=== PATIENT | male | born 1945 | race Caucasian/White ===

== ENCOUNTER 2017-02-06 15:36 | Inpatient (IN) | payer MEDICARE, SELFPAY ==
--- NOTE | ~2017-02-06 | DS ---
Discharge Summary [facility] [address] [place]. [address] NAME: DAISY ADDISON : 43 STATUS : DIS IN PAT#: [id number] AGE: 71 ADM/REG DATE : 02/06/17 MR#: [id number] REPORT SERV DATE: 02/18/17 DICTATED BY: JERE DIAZ DATE: 02/17/17 REPORT STATUS : Draft TRANSCRIBED BY: SHEBA DATE: 02/17/17 Data Collection from hospitalization DISCHARGE DIAGNOSES: 1. Acute coronary syndrome, status post percutaneous coronary intervention. 2. Coronary artery disease. 3. Hypertension. 4. Hyperlipidemia. 5. Former smoker. CONSULTATIONS: None. PROCEDURES PERFORMED: Cardiac catheterization and percutaneous coronary intervention on 02/08/2017. MEDICATIONS: Norvasc 10 mg daily, aspirin 81 mg daily, Lipitor 40 mg at bedtime, Dexilant 60 mg before breakfast, hydrochlorothiazide 25 mg daily, Claritin 10 mg daily, Klor-Con 10 mEq daily, Mysoline 100 mg twice a day, Altace 2.5 mg daily, Flomax 0.4 mg at bedtime, and Brilinta 90 mg twice a day. CONDITION AT DISCHARGE: Stable. DISPOSITION: The patient was discharged home on a low-sodium, low-cholesterol, cardiac diet with activities as instructed. He would follow up with me on 03/02/2017. HOSPITAL COURSE: This is a 71-year-old man who has a history significant for coronary artery disease. He had undergone previous stenting. He presented to the emergency room after the acute onset of substernal chest pain radiating to the left arm with associated nausea, diaphoresis, and shortness of breath. The patient reports that he was driving at the time of this episode. He said that earlier in the day he had been performing some outdoor work, but said that the exertion was not unlike that which he usually performs without difficulty. He was admitted to the hospital at this time for further evaluation and treatment. Upon admission, EKG showed incomplete right bundle-branch block with borderline left ventricular hypertrophy by voltage criteria and aVL. Troponin x2 was negative. He was felt to have acute coronary syndrome. It was felt that he would need to undergo left heart catheterization and possible percutaneous coronary intervention. The following day, he was in no distress. His lungs were clear. He was taken to the cardiac salvage laborer where he underwent the above-mentioned procedure. He tolerated this well, and there were no complications. Discharge planning was performed. He had successful percutaneous transluminal coronary angioplasty and placement of drug-eluting stent in the mid left anterior descending artery. On 02/09/2017, he had no chest pain or shortness of breath. Blood pressure had increased slightly. His lungs were clear. He had no edema. Ramipril was added to his regimen. Discharge instructions were given. The importance of DAPT was reinforced. Due to his improved and stable condition, he was discharged home with the above stated instructions. Information collected by: Brooklynn Hill Discharge Summary [facility] [address] [place]. [address] NAME: DAISY ADDISON : 43 STATUS : DIS IN [facility]#: [id number] AGE: 71 ADM/REG DATE : 02/06/17 MR#: [id number] REPORT SERV DATE: 02/18/17 DICTATED BY: JERE DIAZ DATE: 02/17/17 REPORT STATUS : Draft TRANSCRIBED BY: SHEBA DATE: 02/17/17 I submit the above information as my discharge summary. ANAM/SHEBA Jere Diaz M.D., Elyssa / [id number] CC: Jere Diaz M.D., Elyssa Jerry M.D.
--- NOTE | ~2017-02-06 | OP ---
Record Of Operation [facility] [address] [place]. [address] NAME: DAISY ADDISON : 43 STATUS : ADM Jose PAT#: [id number] AGE: 71 ADM/REG DATE : 02/06/17 MR#: [id number] REPORT SERV DATE: 02/09/17 DICTATED BY: JERE DIAZ DATE: 02/08/17 REPORT STATUS : Draft TRANSCRIBED BY: SHEBA DATE: 02/08/17 DATE OF PROCEDURE: 02/08/2017 INDICATION FOR THIS PROCEDURE: Acute coronary syndrome. DESCRIPTION OF PROCEDURE: The patient was prepped and draped in the usual sterile fashion. Adequate anesthesia was obtained over the right femoral vessels using lidocaine infiltration. Using the Seldinger technique, a 6-Chilean sheath was placed in the right femoral artery. A 6 FL5 coronary catheter was advanced in the left coronary ostium. Left coronary artery injections were performed in multiple views. Left coronary catheter was then exchanged for 6 FR4 coronary catheter, which was advanced to the right coronary ostium. Right coronary injections were then performed in the MOIZ and JARAMILLO views. The right coronary catheter was then exchanged for 6-Chilean pigtail catheter, which was advanced into the left ventricular cavity. Pressures were measured across the aortic valve and left ventricular angiogram was obtained in the JARAMILLO projection. The pigtail catheter was removed over a guidewire and sheath left in place. There were no apparent complications. RESULTS: 1. Pressures: The left ventricular end-diastolic pressure was 16 mmHg and no gradient was present across the aortic valve. 2. Left ventricular angiogram: The left ventricle contracted normally with an estimated ejection fraction of 65%. 3. Coronary arteriograms: The left main coronary artery is normal. Left anterior descending coronary artery has an 80% segmental stenosis just distal to the site of previous stent implantation in the mid vessel. Left circumflex coronary artery has a 60% to 70% distal lesion in the obtuse marginal branch (small vessel disease). The right coronary artery is a dominant vessel and is also normal. IMPRESSION: 1. High-grade stenosis of mid left anterior descending artery. 2. Small vessel disease in the distribution of the left circumflex coronary artery. 3. Normal left ventricular function. PLAN: Proceed with stenting of mid LAD. DEANNA/SHEBA Jere Diaz M.D., Elyssa / [id number] CC: Jere Diaz M.D., Elyssa Record Of Operation [address] [place] [address] NAME: SENIOR DATABASE PROGRAMMERVEE GASTONYuridia YU : 43 STATUS : ADM Jose PAT#: [id number] AGE: 71 ADM/REG DATE : 02/06/17 MR#: [id number] REPORT SERV DATE: 02/09/17 DICTATED BY: JERE DIAZ DATE: 02/08/17 REPORT STATUS : Draft TRANSCRIBED BY: SHEBA DATE: 02/08/17 Navdeep Jerry M.D.
--- NOTE | ~2017-02-06 | HP ---
History And Physical [facility] [id number] [place]. [address] NAME: DAISY GROVE : 43 STATUS : ADM Jose PAT#: [id number] AGE: 71 ADM/REG DATE : 02/06/17 MR#: [id number] REPORT SERV DATE: 02/07/17 DICTATED BY: JERE HIGGINS DATE: 02/07/17 REPORT STATUS : Draft TRANSCRIBED BY: MODL DATE: 02/07/17 DATE OF ADMISSION: 02/06/2017 HISTORY OF PRESENT ILLNESS: Mr. Daisy rGove is a 71-year-old gentleman with past medical history significant for coronary artery disease, status post previous stent by Dr. Diaz. He presented to the emergency room after the acute onset of substernal chest pain radiating to the left arm with associated nausea, diaphoresis, and shortness of breath. The patient reports that he was driving at the time of the episode. He reports that earlier in the day he had been performing some outdoor work but states that the exertion was not unlike that which he usually performs without difficulty. REVIEW OF SYSTEMS: The patient denies any orthopnea, paroxysmal nocturnal dyspnea, syncope or presyncope. He denies any gastrointestinal, genitourinary, neurologic or respiratory complaints except as per HPI. PAST MEDICAL HISTORY: As noted above. Significant for coronary artery disease. He has been previously stented by Dr. Diaz. He reports at that time he was told that he had another lesion which was not stented secondary to collaterals. The patient is status post bilateral knee surgeries. He is status post previous left hip surgery. He has had previous cholecystectomy and spine fusion. 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 MEDICATIONS: See list. ALLERGIES: THE PATIENT REPORTS ALLERGY TO MORPHINE. SOCIAL HISTORY: The patient has not smoked in over 40 years. FAMILY HISTORY: Positive for coronary artery disease. PHYSICAL EXAMINATION: VITAL SIGNS: Blood pressure 132/76, pulse 50, respiratory rate 18. The patient is afebrile. GENERAL: This is a well-developed, well-nourished, 71-year-old white male, alert and oriented x3 in no acute distress. NECK: No jugular venous distention, hepatojugular reflux, carotid bruits. CARDIOVASCULAR: Decreased rate with regular rhythm. No murmur, gallop, click, or rub. LUNGS: Clear to auscultation without wheezes, rales, or rhonchi. ABDOMEN: Soft, nontender, nondistended. Positive bowel sounds. EXTREMITIES: Trace lower extremity edema. DATA: EKG shows an incomplete right bundle branch block with borderline LVH by voltage criteria and aVL. Troponin x2 is negative. ASSESSMENT: History And Physical [address] [place]. [address] NAME: DAISY GROVE : 43 STATUS : ADM Jose PAT#: [id number] AGE: 71 ADM/REG DATE : 02/06/17 MR#: [id number] REPORT SERV DATE: 02/07/17 DICTATED BY: JERE HIGGINS DATE: 02/07/17 REPORT STATUS : Draft TRANSCRIBED BY: SHEBA DATE: 02/07/17 1. Acute coronary syndrome. 2. Coronary artery disease. 3. Hypertension. 4. Hyperlipidemia. 5. History of Alonzo's esophagitis. PLAN: 1. See orders. 2. Proceed with left heart catheterization and possible PCI. We will defer this decision to Dr. Diaz. /SHEBA Jere Higgins M.D., [facility] / [id number] CC: Jere Diaz M.D., F.A.C.C.
--- NOTE | ~2017-02-06 | OP ---
Record Of Operation [facility] [address] [place]. [address] NAME: DAISY ADDISON : 43 STATUS : ADM Jose PAT#: [id number] AGE: 71 ADM/REG DATE : 02/06/17 MR#: [id number] REPORT SERV DATE: 02/09/17 DICTATED BY: JERE DIAZ DATE: 02/08/17 REPORT STATUS : Draft TRANSCRIBED BY: MODL DATE: 02/08/17 DATE OF PROCEDURE: 02/08/2017 [facility] REPORT INDICATION FOR THIS PROCEDURE: Acute coronary syndrome. PROCEDURE IN DETAIL: The patient had already been prepped and draped and a 6-Marshallese sheath was in place in the right femoral artery from preceding cardiac catheterization. Moderate IV sedation was administered. A 6 FL5 coronary guiding catheter was advanced to the left coronary ostium. Left coronary artery injections confirmed the presence of an 80% segmental stenosis of the mid LAD. A 0.014 Luge guidewire was passed into the distal vessel. The vessel was dilated with a 3.0/20 Emerge balloon at up to 15 atmospheres pressure for 15 seconds in duration. A 2.75/28 Synergy stent was then deployed across the lesion at up to 15 atmospheres pressure for 15 seconds in duration. Following removal of balloon and guidewire, final left coronary artery injection showed 0% residual stenosis at the site of stent implantation with LAMAR grade 3 distal flow. The guiding catheter was removed and the sheath left in place. There were no apparent complications. TOTAL CONTRAST: 140 mL. RADIATION EXPOSURE: 1200 mGy. ESTIMATED BLOOD LOSS: No significant blood loss occurred. IMPRESSION: Successful percutaneous transluminal coronary angioplasty and placement of drug- eluting stent in mid left anterior descending artery. DEANNA/SHEBA Jere Diaz M.D., Elyssa / [id number] CC: Jere Diaz M.D., Elyssa Jerry M.D.
[~2017-02-06 15:36] MED LIST: ALTA2.5 PO; ASA5GR PO; ASAB PO; B12100T PO; BYSTOLIC10 MG PO; COREG3 PO; CYANO1000T PO; DOX10 PO; EFFIENT10 PO; FERROUS SULF325 M1 PO; FLOMAX4 PO; GERIATRIC HP PO; HYDROCHLOROT25 MG PO; KAPIDEX60 MG PO; KDUR10 PO; KLONO1 PO; LEXAPRO10 PO; METHOC500B PO; METHOC750B PO; MOBIC15 MG PO; NORV10 PO; PRILO PO; PRIM50B PO; TRIBENZOR PO; ZANTAC150 MG PO
[2017-02-06 16:20] LABS: BASOPHILS 0.2 %; BASOPHILS ABSOLUTE 0.02 10/3/uL (0.0-0.16); EOSINOPHILS 1.1 %; EOSINOPHILS ABSOLUTE 0.12 10/3/uL (0.0-0.53); ER CBC TAT 0 Hrs 03 Mins; HEMATOCRIT 38.4 % (40.0-51.0); HEMOGLOBIN 13.4 g/dL (13.6-17.8); IMMATURE GRANULOCYTES 0.3 %; IMMATURE GRANULOCYTES ABSOLUTE 0.03 10/3/uL (0.0-0.11); LYMPHOCYTES 14.9 %; LYMPHOCYTES ABSOLUTE 1.56 10/3/uL (0.67-4.30); MEAN CORPUS HGB CONC 34.9 g/dL (32.0-36.0); MEAN CORPUSCULAR HEMOGLOB 32.4 pg (26.0-34.0); MEAN PLATELET VOLUME 10.6 fL (9.2-13.0); MONOCYTES 7.3 %; MONOCYTES ABSOLUTE 0.76 10/3/uL (0.21-1.20); NEUTROPHILS 76.2 %; NEUTROPHILS ABSOLUTE 7.95 10/3/uL (2.02-8.40); RBC DISTRIBUTION WIDTH 13.6 % (12.0-16.0); RED CELL COUNT 4.13 10/6/uL (4.7-6.1); WHITE BLOOD CELLS 10.4 10/3/uL (4.5-10.5)
[2017-02-06 16:21] LABS: MANUAL DIFF NO %; PLATELET COUNT 182 10/3/uL (150-400)
[2017-02-06 16:30] LABS: INTERNATIONAL NORMAL RATI 1.1 UNITS (-); PARTIAL THROMBO TIME 28.5 SEC (22.5-37.2); PROTIME (NOT ORD) 14.2 SEC (12.0-14.5)
[2017-02-06] MEDS ORDERED: PRIM50B PO (16:31)
[2017-02-06] MEDS ORDERED: FLOMAX4 PO (16:31)
[2017-02-06] MEDS ORDERED: NORV10 PO (16:32)
[2017-02-06] MEDS ORDERED: KAPIDEX60 MG PO (16:32)
[2017-02-06] MEDS ORDERED: HYDROCHLOROT25 MG PO (16:32)
[2017-02-06] MEDS ORDERED: KLOR-CON M1010 MEQ PO (16:33)
[2017-02-06] MEDS ORDERED: CLARIT10 PO (16:33)
[2017-02-06] MEDS ORDERED: ADVIL PO (16:33)
[2017-02-06 16:35] LABS: CALCIUM, SERUM 8.1 MG/DL (8.5-10.4); CHEST PAIN PROFILE TAT 0 Hrs 18 Mins; CHLORIDE, SERUM 102 MMOL/L (96-112); CO2 (CARBON DIOXIDE) 30 MMOL/L (24-34); SODIUM, SERUM 142 MMOL/L (135-148); TROPONIN I <0.02 NG/ML (<0.05)
[2017-02-06] MEDS ORDERED: AMOXICILLIN PO (16:35)
[2017-02-06 16:36] LABS: BUN (BLOOD UREA NITROGEN) 13 MG/DL (6-23); CREATININE 1.49 MG/DL (0.70-1.30); GFR AFRICAN AMERICAN 54 ML/MIN (>=60); GFR NON AFRICAN AMERICAN 46 ML/MIN (>=60); GLUCOSE, SERUM 136 MG/DL (60-99); POTASSIUM, SERUM 2.8 MMOL/L (3.5-5.3)
[2017-02-06 22:43] LABS: POTASSIUM, SERUM 3.5 MMOL/L (3.5-5.3); TROPONIN I <0.02 NG/ML (<0.05)
[2017-02-07 00:25] LABS: ASCORBIC ACID (UR NOT ORDER) NEG (NEG); BILIRUBIN, URINE NEGATIVE (NEG); KETONE, URINE NEGATIVE (NEG); LEUKOCYTE ESTERASE(NOT OR NEG (NEG); WBC (NOT ORDERED) (RFLEX) 1 (0-5)
[2017-02-07 04:37] LABS: BASOPHILS 0.3 %; BASOPHILS ABSOLUTE 0.02 10/3/uL (0.0-0.16); EOSINOPHILS ABSOLUTE 0.08 10/3/uL (0.0-0.53); HEMATOCRIT 36.7 % (40.0-51.0); HEMOGLOBIN 12.6 g/dL (13.6-17.8); IMMATURE GRANULOCYTES 0.1 %; IMMATURE GRANULOCYTES ABSOLUTE 0.01 10/3/uL (0.0-0.11); LYMPHOCYTES ABSOLUTE 1.79 10/3/uL (0.67-4.30); MEAN CORPUS HGB CONC 34.3 g/dL (32.0-36.0); MEAN CORPUSCULAR VOLUME 93.1 fL (80-100); MEAN PLATELET VOLUME 11.4 fL (9.2-13.0); MONOCYTES 7.1 %; MONOCYTES ABSOLUTE 0.55 10/3/uL (0.21-1.20); NEUTROPHILS 68.5 %; NEUTROPHILS ABSOLUTE 5.32 10/3/uL (2.02-8.40); PLATELET COUNT 141 10/3/uL (150-400); RBC DISTRIBUTION WIDTH 13.8 % (12.0-16.0); RED CELL COUNT 3.94 10/6/uL (4.7-6.1); WHITE BLOOD CELLS 7.8 10/3/uL (4.5-10.5)
[2017-02-07 04:38] LABS: MANUAL DIFF NO %
[2017-02-07 04:54] LABS: CHOL/HDL RATIO(NOT ORDER) 3.8 (0-5); CHOLESTEROL 122 MG/DL (< 200); HDL CHOLESTEROL 32 MG/DL (> 39); LDL CHOLESTEROL 68 MG/DL (< 130); NON-HDL CHOLESTEROL 90 MG/DL (< 160); SGPT(ALT) 25 U/L (5-65); TRIGLYCERIDE 110 MG/DL (< 150)
[2017-02-07 07:11] LABS: BUN (BLOOD UREA NITROGEN) 12 MG/DL (6-23); CALCIUM, SERUM 7.8 MG/DL (8.5-10.4); CHLORIDE, SERUM 109 MMOL/L (96-112); CO2 (CARBON DIOXIDE) 26 MMOL/L (24-34); CREATININE 1.05 MG/DL (0.70-1.30); GFR AFRICAN AMERICAN 82 ML/MIN (>=60); GFR NON AFRICAN AMERICAN 71 ML/MIN (>=60); POTASSIUM, SERUM 3.8 MMOL/L (3.5-5.3); SODIUM, SERUM 145 MMOL/L (135-148)
[2017-02-07 07:12] LABS: GLUCOSE, SERUM 100 MG/DL (60-99)
[2017-02-08 05:23] LABS: INTERNATIONAL NORMAL RATI 1.1 UNITS (-); PROTIME (NOT ORD) 14.1 SEC (12.0-14.5)
[2017-02-08 05:24] LABS: PARTIAL THROMBO TIME 59.5 SEC (22.5-37.2)
[2017-02-08 05:36] LABS: BUN (BLOOD UREA NITROGEN) 12 MG/DL (6-23); CALCIUM, SERUM 8.6 MG/DL (8.5-10.4); CHLORIDE, SERUM 104 MMOL/L (96-112); CHOL/HDL RATIO(NOT ORDER) 4.4 (0-5); CHOLESTEROL 127 MG/DL (< 200); CO2 (CARBON DIOXIDE) 30 MMOL/L (24-34); CREATININE 1.17 MG/DL (0.70-1.30); GFR AFRICAN AMERICAN 72 ML/MIN (>=60); GFR NON AFRICAN AMERICAN 62 ML/MIN (>=60); GLUCOSE, SERUM 93 MG/DL (60-99); HDL CHOLESTEROL 29 MG/DL (> 39); LDL CHOLESTEROL 64 MG/DL (< 130); NON-HDL CHOLESTEROL 98 MG/DL (< 160); POTASSIUM, SERUM 3.4 MMOL/L (3.5-5.3); SODIUM, SERUM 142 MMOL/L (135-148)
[2017-02-08 05:41] LABS: TRIGLYCERIDE 173 MG/DL (< 150)
[2017-02-08 06:02] LABS: BASOPHILS 0.3 %; BASOPHILS ABSOLUTE 0.02 10/3/uL (0.0-0.16); EOSINOPHILS 1.8 %; EOSINOPHILS ABSOLUTE 0.13 10/3/uL (0.0-0.53); HEMATOCRIT 36.8 % (40.0-51.0); HEMOGLOBIN 12.7 g/dL (13.6-17.8); IMMATURE GRANULOCYTES 0.3 %; IMMATURE GRANULOCYTES ABSOLUTE 0.02 10/3/uL (0.0-0.11); LYMPHOCYTES 32.1 %; LYMPHOCYTES ABSOLUTE 2.37 10/3/uL (0.67-4.30); MANUAL DIFF NO %; MEAN CORPUS HGB CONC 34.5 g/dL (32.0-36.0); MEAN CORPUSCULAR HEMOGLOB 32.6 pg (26.0-34.0); MEAN CORPUSCULAR VOLUME 94.6 fL (80-100); MEAN PLATELET VOLUME 12.4 fL (9.2-13.0); MONOCYTES 7.7 %; MONOCYTES ABSOLUTE 0.57 10/3/uL (0.21-1.20); NEUTROPHILS 57.8 %; NEUTROPHILS ABSOLUTE 4.27 10/3/uL (2.02-8.40); PLATELET COUNT 117 10/3/uL (150-400); RBC DISTRIBUTION WIDTH 14.1 % (12.0-16.0); RED CELL COUNT 3.89 10/6/uL (4.7-6.1); WHITE BLOOD CELLS 7.4 10/3/uL (4.5-10.5)
[2017-02-09] MEDS ORDERED: ASAB PO (10:54)
[2017-02-09] MEDS ORDERED: LIPITOR40 PO (10:55)
[2017-02-09] MEDS ORDERED: ALTA2.5 PO (10:56)
[2017-02-09] MEDS ORDERED: BRILINTA90 MG PO (10:57)
== END 2017-02-09 14:48 | disposition home or self-care (01) | DRG 247 ==
LOC: ER 15:36 → CDU1 17:23 → SSU1 02-08 18:02
PROVIDERS: Emergency Medicine; Internal Medicine Interventional Cardiology
PROC: 027034Z Dilation of Coronary Artery, One Artery with Drug-eluting Intraluminal Device, Percutaneous Approach (ICD-10-PCS; principal; 2017-02-08)
PROC: B2151ZZ Fluoroscopy of Left Heart using Low Osmolar Contrast (ICD-10-PCS; principal; 2017-02-08)
PROC: B2111ZZ Fluoroscopy of Multiple Coronary Arteries using Low Osmolar Contrast (ICD-10-PCS; principal; 2017-02-08)
PROC: 4A023N7 Measurement of Cardiac Sampling and Pressure, Left Heart, Percutaneous Approach (ICD-10-PCS; principal; 2017-02-08)
DX: I25.110 Atherosclerotic heart disease of native coronary artery with unstable angina pectoris (principal); I48.92 Unspecified atrial flutter; I10 Essential (primary) hypertension; E78.5 Hyperlipidemia, unspecified; Z87.891 Personal history of nicotine dependence; Z98.1 Arthrodesis status; Z95.5 Presence of coronary angioplasty implant and graft
CPT/HCPCS: 71010; 80048; 80061; 81001; 83735; 83880; 84132; 84460; 84484; 85025; 85610; 85730; 93005; 93458; 99152; 99153; 99285; A9270-GY; C1725; C1769; C1874; C1887; C9600; J0583; J2250; J2405; J3010; Q9967